=== PATIENT | female | born 1945 | race Caucasian/White ===

== ENCOUNTER 2019-04-06 13:32 | Emergency (ER) | payer MEDICARE ==
[~2019-04-06] VITALS: Ht 157.5 cm; Wt 80.8 kg
[2019-04-06 13:45] VITALS: BP 134/90
[2019-04-06] MEDS ORDERED: HYDROcodone/APAP 5/325 TABLET ONE (14:53)
[2019-04-06] MEDS ORDERED: ONDANSETRON ODT 4 MG ONE (14:54)
--- NOTE | 2019-04-06 14:58 | NUR ---
FIRST CONTACT WITH PT. PT STATES "IN DEL FOR 3 DAYS, NEED SOMETHING FOR PAIN OR SLEEP FOR RLE" R/T BACK PAIN, SEES PCP IN [place] FOR BACK PAIN. PT'S AOX4. RESPS EVEN AND UNLABORED.
--- NOTE | 2019-04-06 14:58 | NUR ---
PT MEDICATED PER EMAR. PT TOLERATED WELL.
[2019-04-06] MEDS ORDERED: ONDANSETRON ODT 4 MG PO ONE (15:00)
[2019-04-06] MEDS ORDERED: HYDROcodone/APAP 5/325 TABLET PO ONE (15:00)
--- NOTE | 2019-04-06 15:02 | NUR ---
REPORT GIVEN TO LAZ LANDRUM.
--- NOTE | 2019-04-06 15:08 | NUR ---
PT RIGHT FOOT PEDAL PULSE FOUDN WITH DOPPLER AND MARKED.
[2019-04-06 15:44] LABS: BASOPHILS # (AUTO) 0.03 x10^3/uL (0-0.1); BASOPHILS % (AUTO) 1 % (0-1); EOSINOPHILS # (AUTO) 0.09 x10^3/uL (0-0.4); EOSINOPHILS % (AUTO) 2 % (1-7); LYMPHOCYTES # (AUTO) 0.49 x10^3/uL (1-3.4); LYMPHOCYTES % (AUTO) 9 % (22-44); MD NO; MEAN CORPUSCULAR HEMOGLOBIN 30.8 pg (27.0-34.8); MEAN CORPUSCULAR HGB CONC 33.2 g/dL (32.4-35.8); MEAN CORPUSCULAR VOLUME 92.8 fL (80-100); MEAN PLATELET VOLUME 7.5 fL (7.4-10.4); MONOCYTES # (AUTO) 0.42 x10^3/uL (0.2-0.8); MONOCYTES % (AUTO) 8 % (2-9); NEUTROPHILS # (AUTO) 4.35 x10^3/uL (1.8-6.8); NEUTROPHILS % (AUTO) 81 % (42-75); PLATELET COUNT 301 x10^3/uL (130-400); RED BLOOD COUNT 3.62 x10^6/uL (3.82-5.3); RED CELL DISTRIBUTION WIDTH 15.6 % (9.6-15.2)
[2019-04-06 15:50] LABS: ALBUMIN 3.7 g/dL (3.4-5.0); ANION GAP 6 mmol/L (5-15); CALCIUM 9.3 mg/dL (8.5-10.1); CHLORIDE 112 mmol/L (98-107); CREATININE 2.24 mg/dL (0.55-1.02)
[2019-04-06] MEDS ORDERED: SODIUM CHLORIDE FLUSH 10ML SYR IVF ONE (16:30)
[2019-04-06] MEDS ORDERED: SODIUM CHLORIDE 0.9% 1,000ML IVBOLUS ONE (16:30)
--- NOTE | 2019-04-06 16:49 | NUR ---
Patient/Caregiver given discharge instructions and they have confirmed that they understand the instructions. Patient ambulatory with steady gait.
--- NOTE | 2019-04-06 16:49 | NUR ---
WALKER GIVEN AND EDUCATION.NON SLIP SOCKS PROVIDED WELL.
== END 2019-04-06 17:00 | disposition home or self-care (01) ==
LOC: ED 16:54
DX: G89.29 Other chronic pain (principal); M79.651 Pain in right thigh; M79.661 Pain in right lower leg; D64.9 Anemia, unspecified; E11.65 Type 2 diabetes mellitus with hyperglycemia; Z86.718 Personal history of other venous thrombosis and embolism
CPT/HCPCS: 36415; 80048; 82040; 85025; 93971; 99284; Q0162